=== PATIENT | male | born 1955 | race Caucasian/White ===

== ENCOUNTER 2017-10-12 08:20 | Day surgery (SDC) | payer OTHER ==
[~2017-10-12 08:20] MED LIST: ALPRAZolam 0.25 MG TAB PO PRN; ALPRAZolam 0.5 MG TAB PO PRN; ASPIRIN 325 MG TAB PO STA; ATORVASTATIN 80 MG TAB PO STA; NITROGLYCERIN SL TABS 0.4 MG TAB SUBLINGUAL PRN; SODIUM CHLORIDE 0.9% 1,000 ML IV ONE; SODIUM CHLORIDE 0.9% 1,000 ML in EMPTY BAG 1 BAG IV ONE
[2017-10-12 08:47] VITALS: TEMP 98.1
[2017-10-12 09:07] LABS: Anion Gap 10 mmol/L; Blood Urea Nitrogen 21 mg/dL (9-20); Calcium 9.6 mg/dL (8.4-10.2); Carbon Dioxide 23 mmol/L (22-30); Chloride 108 mmol/L (98-107); Glucose 112 mg/dL (74-99); Potassium 4.6 mmol/L (3.5-5.1); Sodium 141 mmol/L (137-145)
[2017-10-12] MEDS ORDERED: MIDAZOLAM 2 MG/2 ML VIAL ONE (10:53)
[2017-10-12] MEDS ORDERED: HEPARIN SODIUM 1,000 UN/ML (10ML VL) ONE (10:54)
[2017-10-12] MEDS ORDERED: VERAPAMIL 2.5 MG/ML 2 ML AMP ONE (10:54)
[2017-10-12] MEDS ORDERED: LIDOCAINE 2% INJ 20 MG/ML (20 ML MDV) ONE (10:54)
[2017-10-12] MEDS: MIDAZOLAM 2 MG/2 ML VIAL IV ONE ×2 (11:08→11:11)
[2017-10-12] MEDS ORDERED: LIDOCAINE 2% INJ 20 MG/ML SQ ONE (11:11)
[2017-10-12] MEDS: VERAPAMIL SYRINGE (5 MG/10 ML) INTRAARTER ONE ×2 (11:12→11:23)
[2017-10-12] MEDS ORDERED: HEPARIN SODIUM 1,000 UN/ML (10ML VL) IV ONE (11:14)
[2017-10-12] MEDS ORDERED: IOHEXOL 350 MG/ML 125ML BOTTLE INJ ONE (11:23)
[2017-10-12] MEDS ORDERED: RX INFO: IV CONTRAST WAS GIVEN 1 EACH MISC MISCELLANE PRN (11:27)
[2017-10-12] MEDS ORDERED: SODIUM CHLORIDE 0.9% 1,000 ML IV SCH (11:30)
[2017-10-12 11:49] VITALS: RESP 16
--- NOTE | 2017-10-12 12:02 | CC ---
CARDIAC CATHETERIZATION REPORT DATE OF SERVICE: 10/12/2017. PERFORMING PHYSICIAN: Haider Yanez MD, Shelter Director. PROCEDURE PERFORMED: 1. Selective right and left coronary angiogram. 2. Left heart catheterization. INDICATION: This is a pleasant 61-year-old gentleman who is known to have multiple risk factors for coronary artery disease and underwent myocardial perfusion imaging stress test at [facility] and that revealed inferior ischemia. In view of that, a heart catheterization was recommended. APPROACH: Right radial artery. COMPLICATION: None. LEVEL OF SEDATION: Moderate with a sedation length of 14 minutes. PROCEDURE DESCRIPTION: After obtaining an informed consent, the patient was brought to the [facility]. The right radial artery was cannulated using micropuncture technique and a micropuncture wire passed easily, then I placed a 6-Divehi sheath in the right radial artery. After that, I gave the patient 2 mg of verapamil IA and 10,000 units of heparin IV. Then I did selective right and left coronary angiogram using JR4 and JL3.5 catheters. Left heart catheterization was performed using 6-Divehi pigtail catheter. The procedure was completed without any complication. SELECTIVE CORONARY ANGIOGRAM: 1. The right coronary artery is a large caliber vessel and it is a dominant vessel. The proximal RCA is angiographically normal. The mid RCA has mild disease only. The RCA distally is angiographically normal and bifurcates into PDA and PLV branches. Both are angiographically normal. 2. The left main is angiographically normal. It bifurcates into the left circumflex and left anterior descending artery. 3. The left circumflex is a large caliber vessel and it is a nondominant vessel. The proximal circ is angiographically normal and gives rise into the first and second obtuse marginal branches, both are angiographically normal. The mid left circumflex is normal as well and the left circumflex distally is normal. 4. The LAD: The proximal LAD is angiographically normal. It gives rise into multiple septal equipment detailer branches. The mid LAD is normal and gives rise into a large diagonal branch and the LAD distally is angiographically normal. HEMODYNAMICS: The left ventricular end-diastolic pressure was 18 mmHg and no gradient was identified across the aortic valve. CONCLUSION: Mild nonobstructive coronary artery disease. POSTPROCEDURE MANAGEMENT: Maximize medical treatment and follow up with the patient. MMODL / IJN: [id number] /
--- NOTE | 2017-10-12 12:08 | LTR ---
October 12, 2017 Dr. Natalia Chavez at [place]. Re: Irvin Duffy patient. Dear Natalia: Mr. Irvin Duffy underwent a heart catheterization today and that revealed mild nonobstructive coronary artery disease. Maximized medical treatment is recommended. I want to thank you for allowing me to participate in his care and please do not hesitate to call for any question or concern. Sincerely, Haider Yanez MD MMCHANO / JOSÉ MIGUELN: [id number] /
[2017-10-12] MEDS ORDERED: ACETAMINOPHEN TAB 325 MG TAB PO STA (12:36)
[2017-10-12 16:56] VITALS: BP 128/67; PULSE 64
== END 2017-10-12 16:30 | disposition home or self-care (01) ==
LOC: CATHCVL 08:20
PROVIDERS: ATTEND Internal Medicine Interventional Cardiology
DX: I25.110 Atherosclerotic heart disease of native coronary artery with unstable angina pectoris (principal); R94.39 Abnormal result of other cardiovascular function study; E78.5 Hyperlipidemia, unspecified; Z82.49 Family history of ischemic heart disease and other diseases of the circulatory system; Z79.82 Long term (current) use of aspirin; Z79.899 Other long term (current) drug therapy
CPT/HCPCS: 93458; 80048; C1894; C1769; J2001; J2250; J1644; Q9967

== ENCOUNTER → 2019-11-20 | Outpatient (CLI) | payer OTHER ==
[2019-11-20 12:08] LABS: Basophils % (A) 0 %; Eosinophils # (A) 0.1 k/uL (0-0.7); Eosinophils % (A) 2 %; HCT 46.4 % (39.0-53.0); Lymphocytes # (A) 1.7 k/uL (1.0-4.8); Lymphocytes % (A) 23 %; MCH 30.4 pg (25.0-35.0); MCHC 32.4 g/dL (31.0-37.0); MCV 93.8 fL (80.0-100.0); Mean Platelet Volume 7.1; Monocytes # (A) 0.4 k/uL (0-1.0); Monocytes % (A) 6 %; Neutrophils % (A) 67 %; Platelet Count 271 k/uL (150-450); RBC 4.95 m/uL (4.30-5.90); RDW 12.2 % (11.5-15.5); WBC 7.4 k/uL (3.8-10.6)
[2019-11-20 12:11] LABS: Calcium 9.6 mg/dL (8.4-10.2); Potassium 5.1 mmol/L (3.5-5.1)
== END ==
LOC: LABPAT 10:50
PROVIDERS: ATTEND Urology
DX: Z01.818 Encounter for other preprocedural examination (principal); Z01.812 Encounter for preprocedural laboratory examination; N40.1 Benign prostatic hyperplasia with lower urinary tract symptoms
CPT/HCPCS: 36415; 80048; 85025; 93005

== ENCOUNTER 2019-11-27 06:25 | Day surgery (SDC) | payer OTHER ==
[2019-11-19 13:40] VITALS: BMI 35.1
--- NOTE | 2019-11-23 09:34 | P.GSHP ---
History of Present Illness H&P Date: 11/23/19 Chief Complaint: Weak urinary stream The patient is a 64-year-old white male with obstructive voiding symptoms. He developed urinary retention in May 2017, with 1 L drained from his bladder at that time. He was placed on alfuzosin. Cystoscopy showed obstructing BPH. He continues to report a weak stream, intermittency, and a feeling of incomplete bladder emptying. He developed recurrent urinary retention last month, with 650 mL drained from his bladder upon Koch catheter placement. He has a family history of prostate cancer. He underwent a prostate ultrasound with biopsies in 2017, revealing a prostate volume of 62 mL. Biopsies were negative. His most recent PSA level was 3.2 in August 2019. Alternative BPH treatment options were reviewed with he and his following his most recent episode of urinary retention, and he has elected to undergo a transurethral resection of prostate (TURP). He comes for this reason. - Constitutional Constitutional: Denies chills, Denies fever - Genitourinary (Male) Genitourinary: Reports as per HPI Past Medical History Past Medical History: Prostate Disorder Additional Past Medical History / Comment(s): occ PVC/irregular heart beat, currently self catheterization, herniated disk History of Any Multi-Drug Resistant Organisms: None Reported Past Surgical History: Heart Catheterization, Hernia Repair Additional Past Surgical History / Comment(s): rt shoulder arthroscopy,. RIGHT ING & UMBLICIAL hernia. VASECTOMY, oral surgery, Past Anesthesia/Blood Transfusion Reactions: No Reported Reaction Smoking Status: Never smoker - Past Family History Father Family Medical History: Cancer Additional Family Medical History / Comment(s): skin Brother(s) Family Medical History: Cancer Additional Family Medical History / Comment(s): prostate Medications and Allergies Home Medications Medication Instructions Recorded Confirmed Type Alfuzosin HCl [Alfuzosin HCl ER] 10 mg PO 1200,2330 10/05/17 11/19/19 History Aspirin [Adult Low Dose Aspirin EC] 81 mg PO DAILY 10/05/17 11/19/19 History Atorvastatin [Lipitor] 20 mg PO HS 10/05/17 11/19/19 History Cholecalciferol (Vitamin D3) 2,000 unit PO DAILY 10/05/17 11/19/19 History [Vitamin D3] Multivitamins, Thera [Multivitamin 1 tab PO DAILY 10/05/17 11/19/19 History (formulary)] Ibuprofen [Motrin] 400 mg PO Q6HR PRN 11/19/19 11/19/19 History Vitamin K 2 100 mcg PO DAILY 11/19/19 11/19/19 History Allergies Allergy/AdvReac Type Severity Reaction Status Date / Time No Known Allergies Allergy Verified 11/19/19 13:25 Surgical - Exam - General well developed, well nourished, no distress - Respiratory normal respiratory effort, clear to auscultation - Cardiovascular Rhythm: regular Abnormal Heart Sounds: no systolic murmur, no diastolic murmur - Abdomen Abdomen: soft, non tender, no guarding, no rigid, no rebound - Genitourinary normal penis with no external lesions, testicles non-tender - Rectum Rectum: normal sphincter tone, no masses, other (Prostate moderately enlarged but smooth) - Psychiatric oriented to time, oriented to person, oriented to place, speech is normal, memory intact Assessment and Plan (1) Benign prostatic hyperplasia with lower urinary tract symptoms Status: Acute Code(s): N40.1 - BENIGN PROSTATIC HYPERPLASIA WITH LOWER URINARY TRACT SYMP SNOMED Code(s): 474701891 Plan: I discussed the options concerning surgery versus medication. I advised him with regard to TURP as opposed to minimally invasive procedures such as Urolift and TUMT. Potential risks were discussed, including anesthesia, bleeding, inf ection, retrograde ejaculation, incontinence, erectile dysfunction, and vesical neck contracture. He may require admission post-operatively. The patient expressed an understanding with regard to possible complications and outcome. Following a lengthy discussion, as a result of shared decision making, the patient has elected to proceed with a TURP.
[~2019-11-27 06:25] MED LIST changes: -ALPRAZolam 0.25 MG TAB PO PRN; -ALPRAZolam 0.5 MG TAB PO PRN; -ASPIRIN 325 MG TAB PO STA; -ATORVASTATIN 80 MG TAB PO STA; +DEXAMETHASONE SOD PHOSPHATE 10 MG/ML 1 ML VIAL IV ONE; +HYDROmorphone 0.5 MG/0.5 ML SYRINGE IVP PRN; +LIDOCAINE 1% (10MG/ML) FOR IV START INTRADERMA PRN; -NITROGLYCERIN SL TABS 0.4 MG TAB SUBLINGUAL PRN; +ONDANSETRON 4 MG/2 ML VIAL IVP ONE; -SODIUM CHLORIDE 0.9% 1,000 ML IV ONE; -SODIUM CHLORIDE 0.9% 1,000 ML in EMPTY BAG 1 BAG IV ONE
[2019-11-27] MEDS: LACTATED RINGERS 1,000 ML IV SCH ×2 (06:54→12:20)
[2019-11-27] MEDS ORDERED: LIDOCAINE 1% INJ 10MG/ML (20 ML MDV) ONE (07:30)
[2019-11-27] MEDS ORDERED: GLYCOPYRROLATE 0.2 MG/ML 2 ML VIAL ONE (07:30)
[2019-11-27] MEDS ORDERED: fentaNYL (PF) 50 MCG/ML 2 ML AMP ONE (07:30)
[2019-11-27] MEDS ORDERED: ROCURONIUM BROMIDE 10 MG/ML 5 ML VIAL IV ONE (07:30)
[2019-11-27] MEDS ORDERED: NEOSTIGMINE 1 MG/ML 10 ML VIAL ONE (07:30)
[2019-11-27] MEDS ORDERED: PROPOFOL 10 MG/ML 20 ML VIAL IV ONE (07:30)
[2019-11-27] MEDS ORDERED: MIDAZOLAM 2 MG/2 ML VIAL ONE (07:30)
[2019-11-27] MEDS ORDERED: LACTATED RINGERS 1,000 ML IV ONE (09:06)
[2019-11-27] MEDS ORDERED: MAG HYDROX/AL HYDROX/SIMETH 30 ML CUP PO PRN (11:26)
[2019-11-27] MEDS ORDERED: ACETAMINOPHEN TAB 325 MG TAB PO PRN (11:26)
[2019-11-27] MEDS ORDERED: BELLADONNA-OPIUM 16.2-60 MG 1 EACH SUPP RECTAL PRN (11:26)
--- NOTE | 2019-11-27 11:32 | P.OP ---
Date of Procedure: 11/27/19 Preoperative Diagnosis: BPH with obstruction Postoperative Diagnosis: Same Procedure(s) Performed: Cystoscopy, bipolar transurethral resection of prostate (TURP) Anesthesia: JOSE MARTIN Surgeon: Steve Hewitt Estimated Blood Loss (ml): 100 IV fluids (ml): 1,400 Pathology: other (Prostate chips) Condition: stable Disposition: PACU Indications for Procedure: The patient is a 64-year-old white male with obstructive voiding symptoms. He developed urinary retention in May 2017, with 1 L drained from his bladder at that time. He was placed on alfuzosin. Cystoscopy showed obstructing BPH. He continues to report a weak stream, intermittency, and a feeling of incomplete bladder emptying. He developed recurrent urinary retention last month, with 650 mL drained from his bladder upon Koch catheter placement. He has a family history of prostate cancer. He underwent a prostate ultrasound with biopsies in 2017, revealing a prostate volume of 62 mL. Biopsies were negative. His most recent PSA level was 3.2 in August 2019. Alternative BPH treatment options were reviewed with he and his following his most recent episode of urinary retention, and he has elected to undergo a transurethral resection of prostate (TURP). Operative Findings: Bilobar BPH with high median bar, visually occluded. Description of Procedure: The patient was taken in the operating room and placed in the dorsolithotomy position. The external genitalia was prepped and draped sterilely. The 25- Irish ACMI resectoscope sheath was introduced into the bladder. The bladder was inspected. Both ureteral orifices were of normal anatomic location and configuration, and clear urine effluxed from both. No tumors or foreign bodies were seen. Examination of the prostate revealed complete obstruction with a ellen obar configuration with a high median bar. Using the bipolar cutting loop, the median lobe was resected up to the verumontanum. This opened the prostatic fossa, and the lateral lobes were resected down to the surgical capsule. The resection of the floor of the prostate was then completed, proximal to the verumontanum. Lastly, any remaining anterior tissue was resected. The remaining apical tissue was then carefully resected. The resection was carried down to the surgical capsule in all 4 quadrants. The prostatic fossa was then carefully examined, and any areas of bleeding were controlled with electrocautery. Excellent hemostasis was attained. The resectoscope was withdrawn into the bulbous urethra. The external urinary sphincter remained intact. The prostatic fossa was open. The Conductor evacuator was used to remove all prostate chips from the bladder. These were saved and sent for pathologic examination. The resectoscope was removed, and a 22 Irish, 3-Way Koch catheter was placed. The return was essentially clear. Continuous bladder irrigation was started using 0.9 normal saline. The patient tolerated the procedure well was taken to the recovery room in stable condition.
[2019-11-27] MEDS: DEXTROSE 5%-0.45% NACL 1,000 ML IV SCH (13:14)
[2019-11-27] MEDS: SODIUM CHLORIDE 0.9% IRRIG 3,000 ML BAG IRRIGATION SCH ×2 (13:15→18:03)
[2019-11-27] MEDS: DOCUSATE 100 MG CAP PO SCH ×2 (13:18→20:08)
[2019-11-27] MEDS ORDERED: ATORVASTATIN 20 MG TAB PO SCH (21:00)
[2019-11-28] MEDS: DEXTROSE 5%-0.45% NACL 1,000 ML IV SCH (00:47)
[2019-11-28 02:11] VITALS: RESP 16
[2019-11-28 07:27] VITALS: BP 100/48; PULSE 60; TEMP 97.9
--- NOTE | 2019-11-28 07:59 | P.DS ---
Providers Expected date of discharge: 11/28/19 Attending physician: Steve Hewitt Primary care physician: Natalia Chavez, [facility] - Discharge Diagnosis(es) (1) Benign prostatic hyperplasia with lower urinary tract symptoms Current Visit: No Status: Acute Hospital Course: Review of admission, the patient underwent an uncomplicated bipolar TURP. The perioperative course was unremarkable. He remained afebrile with stable vital signs. On the first morning following surgery, he was comfortable and eating breakfast. His urine was essentially clear with continuous bladder irrigation r unning very slowly. Procedures: Cystoscopy, TURP on 11/27/19. Patient Condition at Discharge: Good Plan - Discharge Summary Discharge Rx Participant: Yes New Discharge Prescriptions: New Sulfamethox-Tmp 800-160Mg [Bactrim DS 800-160 mg] 1 tab PO Q12HR #6 tab No Action Alfuzosin HCl [Alfuzosin HCl ER] 10 mg PO 1200,2330 Aspirin [Adult Low Dose Aspirin EC] 81 mg PO DAILY Atorvastatin [Lipitor] 20 mg PO HS Cholecalciferol (Vitamin D3) [Vitamin D3] 2,000 unit PO DAILY Multivitamins, Thera [Multivitamin (formulary)] 1 tab PO DAILY Vitamin K 2 100 mcg PO DAILY Ibuprofen [Motrin] 400 mg PO Q6HR PRN PRN Reason: Pain Discharge Medication List Alfuzosin HCl [Alfuzosin HCl ER] 10 mg PO 1200,2330 10/05/17 [History] Aspirin [Adult Low Dose Aspirin EC] 81 mg PO DAILY 10/05/17 [History] Atorvastatin [Lipitor] 20 mg PO HS 10/05/17 [History] Cholecalciferol (Vitamin D3) [Vitamin D3] 2,000 unit PO DAILY 10/05/17 [History] Multivitamins, Thera [Multivitamin (formulary)] 1 tab PO DAILY 10/05/17 [History] Ibuprofen [Motrin] 400 mg PO Q6HR PRN 11/19/19 [History] Vitamin K 2 100 mcg PO DAILY 11/19/19 [History] Sulfamethox-Tmp 800-160Mg [Bactrim DS 800-160 mg] 1 tab PO Q12HR #6 tab 11/28/19 [Rx] Follow up Appointment(s)/Referral(s): Steve Hewitt MD [STAFF PHYSICIAN] - 12/02/19 Activity/Diet/Wound Care/Special Instructions: Discharge home with Koch catheter. Plug irrigant port. Avoid straining or strenuous activity. Drink plenty of fluids. Diet as tolerated. Hold aspirin and ibuprofen. Begin taking Bactrim on 12/01/2019. Discharge Disposition: HOME SELF-CARE
[2019-11-28] MEDS: LACTATED RINGERS 1,000 ML IV SCH (09:36)
[2019-11-28] MEDS: DOCUSATE 100 MG CAP PO SCH (09:36)
== END 2019-11-28 11:33 | disposition home or self-care (01) ==
LOC: OR 06:25 → 4SSUR 10:55 → OR 11-28 11:33
PROVIDERS: ATTEND Urology
DX: N40.1 Benign prostatic hyperplasia with lower urinary tract symptoms (principal); N13.8 Other obstructive and reflux uropathy; C61 Malignant neoplasm of prostate; N41.9 Inflammatory disease of prostate, unspecified; E78.5 Hyperlipidemia, unspecified; I49.3 Ventricular premature depolarization; Z98.52 Vasectomy status; Z98.890 Other specified postprocedural states; Z80.42 Family history of malignant neoplasm of prostate; Z80.8 Family history of malignant neoplasm of other organs or systems; Z79.82 Long term (current) use of aspirin; Z79.899 Other long term (current) drug therapy
CPT/HCPCS: 52601; 88305; 84132; J2250; J1100; J2710; J0690; J2405; J2001; J3010; J2704

== ENCOUNTER → 2020-03-08 | Outpatient (CLI) | payer OTHER ==
--- NOTE | 2020-03-09 07:56 | CT ---
EXAMINATION TYPE: CT pelvis w con DATE OF EXAM: 03/08/2020 COMPARISON: 06/25/2015 HISTORY: Follow up prostate cancer. CT DLP: 999.1 mGycm Automated exposure control for dose reduction was used. CONTRAST: CT scan of the pelvis is performed with IV Contrast, patient injected with 100 mL of Isovue 300. FINDINGS- Small fat-containing inguinal hernias bilaterally. The bladder is decompressed limiting. Hypertrophic and degenerative change of the spine is seen and there is hypertrophic changes involving the SI join ts. This is similar to the prior exam. Sclerotic density involving the right pubic ramus is stable an d therefore likely related to bone island unchanged from 2015. There remains soft tissue fullness in the left pelvis measuring 5 x 2.5 cm on the left and 1.3 x 2.2 cm on the right unchanged from the prior exam. Prostate gland appears prominent. Visualized bowel dem onstrate no definite abnormality aorta of normal caliber. IMPRESSION- 1. Stable CT of the pelvis demonstrating the previously described soft tissue densities in the lower pelvis greater on the left which could represent lymph nodes unchanged from prior exam of 2014. 2. Prostate again appears somewhat enlarged. 3. Stable sclerotic lesion involving the pubic ramus on the right unchanged from 2015 and therefore l ikely benign and related to bone island.
== END | disposition home or self-care (01) ==
LOC: RADCTMAIN 14:36
PROVIDERS: ATTEND Urology
DX: C61 Malignant neoplasm of prostate (principal)
CPT/HCPCS: 82565; 84520; 72193; 36415; Q9967

== ENCOUNTER → 2020-04-28 | Outpatient (CLI) | payer OTHER ==
[2020-04-28 08:01] LABS: Basophils % (A) 1 %; Eosinophils # (A) 0.1 k/uL (0-0.7); Eosinophils % (A) 2 %; HGB 15.3 gm/dL (13.0-17.5); Lymphocytes # (A) 1.7 k/uL (1.0-4.8); Lymphocytes % (A) 26 %; MCH 31.6 pg (25.0-35.0); MCHC 33.9 g/dL (31.0-37.0); Mean Platelet Volume 7.4; Monocytes # (A) 0.5 k/uL (0-1.0); Monocytes % (A) 7 %; Neutrophils # (A) 3.9 k/uL (1.3-7.7); Neutrophils % (A) 62 %; Platelet Count 205 k/uL (150-450); RBC 4.84 m/uL (4.30-5.90); RDW 12.9 % (11.5-15.5); WBC 6.2 k/uL (3.8-10.6)
[2020-04-28 08:06] LABS: Calcium 9.4 mg/dL (8.4-10.2); Potassium 4.9 mmol/L (3.5-5.1)
== END | disposition home or self-care (01) ==
LOC: LABPAT 07:11
PROVIDERS: ATTEND Urology
DX: Z01.818 Encounter for other preprocedural examination (principal); C61 Malignant neoplasm of prostate
CPT/HCPCS: 36415; 80048; 85025

== ENCOUNTER 2020-05-05 07:09 | Day surgery (SDC) | payer MEDICARE, OTHER ==
[2020-04-28 11:57] VITALS: BMI 34.0
[~2020-05-05 07:09] MED LIST changes: +HEPARIN SODIUM,PORCINE 5,000 UNIT/ML 1 ML VIAL SQ ONE; -HYDROmorphone 0.5 MG/0.5 ML SYRINGE IVP PRN; -LIDOCAINE 1% (10MG/ML) FOR IV START INTRADERMA PRN
[2020-05-05] MEDS ORDERED: ONDANSETRON 4 MG/2 ML VIAL ONE (07:51)
[2020-05-05] MEDS ORDERED: HEPARIN SODIUM,PORCINE 5,000 UNIT/ML 1 ML VIAL ONE (07:51)
--- NOTE | 2020-05-05 07:55 | P.GSHP ---
History of Present Illness H&P Date: 05/05/20 Chief Complaint: Prostate cancer The patient is a 64-year-old white male with obstructive voiding symptoms. He developed urinary retention in May 2017, with 1 L drained from his bladder at that time. He was placed on alfuzosin. Cystoscopy showed obstructing BPH. He continues to report a weak stream, intermittency, and a feeling of incomplete bladder emptying. He developed recurrent urinary retention last month, with 650 mL drained from his bladder upon Koch catheter placement. He has a family history of prostate cancer. He underwent a prostate ultrasound with biopsies in 2017, revealing a prostate volume of 62 mL. Biopsies were negative. His most recent PSA level was 3.2 in August 2019. Alternative BPH treatment options were reviewed with he and his following his most recent episode of urinary retention, and he elected to undergo a transurethral resection of prostate (TURP). This was performed on 11/27/2019. 5% of the resected tissue showed [place] 6 adenocarcinoma. He underwent a prostate ultrasound with biopsies on 01/16/2020. The prostate volume was 29 mL, and one of 12 biopsies showed [place] 7 (3+4) adenocarcinoma. He was offered the options of active surveillance, radiation therapy, and robotic-assisted laparoscopic prostate ctomy. He has elected to undergo the latter. - Constitutional Constitutional: Denies chills, Denies fever - Cardiovascular Cardiovascular: Denies chest pain - Respiratory Respiratory: Denies dyspnea Past Medical History Past Medical History: Prostate Disorder Additional Past Medical History / Comment(s): occ PVC/irregular heart beat, herniated disk L4-L5 History of Any Multi-Drug Resistant Organisms: None Reported Past Surgical History: Heart Catheterization, Hernia Repair Additional Past Surgical History / Comment(s): rt shoulder arthroscopy,. RIGHT ING & UMBLICIAL hernia. VASECTOMY, oral surgery,TURP Past Anesthesia/Blood Transfusion Reactions: No Reported Reaction Additional Past Anesthesia/Blood Transfusion Reaction / Comment(s): no hx blood transfusion Smoking Status: Never smoker - Past Family History Father Family Medical History: Cancer Additional Family Medical History / Comment(s): skin & prostate CA Brother(s) Family Medical History: Cancer Additional Family Medical History / Comment(s): prostate Medications and Allergies Home Medications Medication Instructions Recorded Confirmed Type Aspirin [Adult Low Dose Aspirin EC] 81 mg PO DAILY 10/05/17 04/28/20 History Atorvastatin [Lipitor] 20 mg PO HS 10/05/17 04/28/20 History Cholecalciferol (Vitamin D3) 2,000 unit PO BID 10/05/17 04/28/20 History [Vitamin D3] Multivitamins, Thera [Multivitamin 1 tab PO DAILY 10/05/17 04/28/20 History (formulary)] Allergies Allergy/AdvReac Type Severity Reaction Status Date / Time No Known Allergies Allergy Verified 05/05/20 07:42 Surgical - Exam - General well developed, well nourished, no distress - Respiratory normal respiratory effort, clear to auscultation - Cardiovascular Rhythm: regular Abnormal Heart Sounds: no systolic murmur, no diastolic murmur, no rub, no S3 Gallop, no S4 Gallop, no click, no other - Abdomen Abdomen: soft, non tender, no guarding, no rigid, no rebound Hernia: no none, no inguinal, no epigastric, no incisional, no reducible, no femoral, no umbilical, no scrotal, no incarcerated - Genitourinary normal penis with no external lesions, testicles non-tender - Psychiatric oriented to time, oriented to person, oriented to place, speech is normal, memory intact Assessment and Plan (1) Malignant neoplasm of prostate Status: Acute Code(s): C61 - MALIGNANT NEOPLASM OF PROSTATE SNOMED Code(s): 063552302 Plan: Robotic-assisted laparoscopic prostatectomy (RALP). The procedure has been reviewed in detail with the patient. The anticipated perioperative course was discussed, as were potential risks. These include anesthesia, bleeding, infection, vascular injury, bowel injury, urinary leak, vesical neck contracture, and urethral stricture. He is voiding well following his TURP, but he was made aware of the fact that he will likely experience urinary incontinence following the RALP which may fail to resolve. He is not sexually active, but denies erectile dysfunction and an attempt will be made to preserve the neurovascular bundles.
[2020-05-05] MEDS: LACTATED RINGERS 1,000 ML IV SCH (07:56)
[2020-05-05] MEDS ORDERED: fentaNYL (PF) 50 MCG/ML 2 ML AMP ONE (08:26)
[2020-05-05] MEDS ORDERED: ALBUMIN HUMAN 5% (25gm) 500 ML VIAL IVPB ONE (08:26)
[2020-05-05] MEDS ORDERED: HYDROmorphone (PF) 1 MG/ML ONE (08:26)
[2020-05-05] MEDS ORDERED: GLYCOPYRROLATE 0.2 MG/ML 2 ML VIAL ONE (08:26)
[2020-05-05] MEDS ORDERED: ROCURONIUM BROMIDE 10 MG/ML 5 ML VIAL IV ONE (08:26)
[2020-05-05] MEDS ORDERED: LIDOCAINE 1% INJ 10MG/ML (20 ML MDV) ONE (08:26)
[2020-05-05] MEDS ORDERED: PROPOFOL 10 MG/ML 20 ML VIAL IV ONE (08:26)
[2020-05-05] MEDS ORDERED: MIDAZOLAM 2 MG/2 ML VIAL ONE (08:26)
[2020-05-05] MEDS ORDERED: SUCCINYLCHOLINE CHLORIDE 100 MG/5 ML SYR IV ONE (08:26)
[2020-05-05] MEDS ORDERED: NEOSTIGMINE 1 MG/ML 10 ML VIAL ONE (08:26)
[2020-05-05] MEDS ORDERED: BUPIVACAINE (PF) 0.25% 30 ML VIAL SQ ONE ×2 (10:28)
[2020-05-05] MEDS ORDERED: HYDROmorphone 1 MG/ML 1 ML SYRINGE IVP PRN (12:57)
[2020-05-05] MEDS ORDERED: ONDANSETRON 4 MG/2 ML VIAL IVP PRN (12:57)
[2020-05-05] MEDS ORDERED: ACETAMINOPHEN TAB 325 MG TAB PO PRN (12:57)
--- NOTE | 2020-05-05 12:57 | P.OP ---
Date of Procedure: 05/05/20 Preoperative Diagnosis: Adenocarcinoma of the prostate, clinical stage [id number] Postoperative Diagnosis: Same Procedure(s) Performed: Robotic-assisted laparoscopic prostatectomy (RALP) Anesthesia: JOSE MARTIN Surgeon: Steve Hewitt Community Worker #1: Floyd Pagan Estimated Blood Loss (ml): 250 IV fluids (ml): 700 Pathology: other (Prostate and seminal vesicles) Condition: stable Disposition: PACU Indications for Procedure: The patient is a 64-year-old white male with obstructive voiding symptoms. He developed urinary retention in May 2017, with 1 L drained from his bladder at that time. He was placed on alfuzosin. Cystoscopy showed obstructing BPH. He continues to report a weak stream, intermittency, and a feeling of incomplete bladder emptying. He developed recurrent urinary retention last month, with 650 mL drained from his bladder upon Koch catheter placement. He has a family history of prostate cancer. He underwent a prostate ultrasound with biopsies in 2017, revealing a prostate volume of 62 mL. Biopsies were negative. His most recent PSA level was 3.2 in August 2019. Alternative BPH treatment options were reviewed with he and his following his most recent episode of urinary retention, and he elected to undergo a transurethral resection of prostate (TURP). This was performed on 11/27/2019. 5% of the resected tissue showed Pattison 6 adenocarcinoma. He underwent a prostate ultrasound with biopsies on 01/16/2020. The prostate volume was 29 mL, and one of 12 biopsies showed Pattison 7 (3+4) adenocarcinoma. He was offered the options of active surveillance, radiation therapy, and robotic-assisted laparoscopic prostatectomy. He has elected to undergo the latter. Operative Findings: Significant periprostatic reaction. Description of Procedure: The patient was taken in the operating room and placed in the dorsal lithotomy position, with his legs supported in Roldan stirrups. He was carefully positioned on a beanbag for stability. The abdomen and external genitalia were prepped and draped sterilely. A Koch catheter was inserted. The Veress needle was passed through the anterior abdominal wall immediately cephalad to the umbilicus, and insufflation was performed to a pressure of 20 mm Hg. Once insufflation was performed, the Veress needle was removed and a supraumbilical incision was made, through which a 12 mm camera port was placed. Under camera guidance, 3 8 mm robotic ports were placed, 2 on the left and one on the right. An additional 12 mm port was placed on the right lateral side for use as an recycling assistant port. A 5 mm port was placed to the right of the camera port for suction. The patient was placed in Trendelenburg position, and docking was then performed to the da Decision Curve system utilizing a 4-arm approach. The abdomen was examined. The sigmoid colon was mobilized out of the pelvis. The peritoneum was incised lateral to the medial umbilical ligaments bilaterally, exposing the pubis. The peritoneum was then incised across the midline, allowing the bladder flap to be taken down. The endopelvic fascia was opened bilaterally, and muscular attachments from the urogenital diaphragm were swept away from the prostate. The vesical neck was incised transversely, down to the lumen. The Koch catheter was brought out through the anterior vesical neck incision and was used for traction. It was determined that despite the prior TURP, the vesical neck incision was in an appropriate area and it was also noted that the vesical neck was intact. The posterior aspect of the vesical neck was incised, such that the full-thickness of the vesical neck was divided. Significant reaction was noted, particularly in the fatty connective tissue laterally. The anterior layer of the Denonvilliers fascia was incised, exposing the vas deferens. Each were isolated and divided. Next, each of the seminal vesicles were dissected away from adjacent tissues, and vascular attachments were cauterized and divided. The posterior leaf of Denonvilliers fascia was incised transversely, allowing entry into the plane between the prostate and rectum. With lateral spreading, this plane was developed down to the apex. This exposed the lateral vascular pedicles bilaterally. These were clipped and divided in an antegrade fashion, down to the apex. The use of electrocautery was avoided to prevent thermal damage to the nerves. The remaining apical attachments were swept away from the prostate. The dorsal venous complex was incised, as well as periurethral tissue. At this point, only the urethra remained intact. This was transected immediately distal to the prostatic apex using cold scissors. The specimen was placed within a specimen bag. The dorsal venous complex was sutured using a V-Loc suture in a running fashion. A second V-Loc suture was then used to place the Twan stitch, incorporating the rhabdosphincter and the edge of Denonvilliers fascia. This allowed the bladder to be taken down to the urethra, leaving the vesical neck immediately adjacent to the urethra. The vesicourethral anastomosis was then performed using a V-Loc suture in a running fashion. After completing the anastomosis, an 18-Somali Koch catheter was placed and approximately 150 mL of 0.9 normal saline were instilled into the bladder. No extravasation of irrigant from the vesicourethral anastomosis was noted. Hemostasis was noted at this time to be excellent, and it was thus felt that a drain was unnecessary. A small amount of oozing was noted from the vascular pedicles, so Surgicel was placed bilaterally. The patient was returned to the supine position. Undocking was performed, and the specimen bag sutures were passed through the camera port. After removing all the ports and allowing all of the CO2 to be released from the peritoneal cavity, the camera port incision was enlarged to allow removal of the surgical specimen. The fascia of this incision was then closed using 0 Vicryl suture in a running fashion. Each of the skin incisions were then closed using 4-0 Monocryl suture in a subcuticular fashion. Marcaine was injected at each of the incision sites. Dermabond was applied to each incision. The Koch catheter was connected to gravity drainage. All sponge and needle counts were correct. The patient tolerated the procedure well was taken to the recovery room in stable condition.
[2020-05-05] MEDS: HYDROmorphone 0.5 MG/0.5 ML SYRINGE IVP PRN ×2 (13:46→14:15)
[2020-05-05] MEDS: DEXTROSE 5%-0.45% NACL 1,000 ML IV SCH ×2 (15:27→21:21)
[2020-05-05] MEDS: KETOROLAC 30 MG/ML 1 ML VIAL IVP PRN ×2 (18:07→23:45)
[2020-05-05] MEDS ORDERED: ATORVASTATIN 20 MG TAB PO SCH (21:00)
[2020-05-05] MEDS: HEPARIN SODIUM,PORCINE 5,000 UNIT/ML 1 ML VIAL SQ SCH (21:21)
[2020-05-06 03:49] VITALS: RESP 18
[2020-05-06 07:50] VITALS: BP 101/55; PULSE 61; TEMP 98.7
[2020-05-06] MEDS: HEPARIN SODIUM,PORCINE 5,000 UNIT/ML 1 ML VIAL SQ SCH (08:49)
--- NOTE | 2020-05-06 10:04 | P.DS ---
Providers Expected date of discharge: 05/06/20 Attending physician: Steve Hewitt Primary care physician: Jayce Bashir MD - Discharge Diagnosis(es) (1) Malignant neoplasm of prostate Current Visit: No Status: Acute Hospital Course: On the day of admission, the patient underwent an uncomplicated robotic-assisted laparoscopic prostatectomy (RALP). The perioperative course was unremarkable. Patient remained afebrile with stable vital signs postoperatively. On the first postoperative day, he had no complaints. He was ambulating without difficulty and tolerating diet. His Koch catheter was draining clear yellow urine. The abdomen was soft and non-distended. The incisions were clean, dry, and intact. Procedures: RALP on 05/05/2020. Patient Condition at Discharge: Good Plan - Discharge Summary Discharge Rx Participant: No New Discharge Prescriptions: New Ciprofloxacin HCl [Cipro] 250 mg PO Q12HR #6 tablet Ketorolac [Toradol] 10 mg PO Q6HR #12 tab No Action Aspirin [Adult Low Dose Aspirin EC] 81 mg PO DAILY Atorvastatin [Lipitor] 20 mg PO HS Cholecalciferol (Vitamin D3) [Vitamin D3] 2,000 unit PO BID Multivitamins, Thera [Multivitamin (formulary)] 1 tab PO DAILY Discharge Medication List Aspirin [Adult Low Dose Aspirin EC] 81 mg PO DAILY 10/05/17 [History] Atorvastatin [Lipitor] 20 mg PO HS 10/05/17 [History] Cholecalciferol (Vitamin D3) [Vitamin D3] 2,000 unit PO BID 10/05/17 [History] Multivitamins, Thera [Multivitamin (formulary)] 1 tab PO DAILY 10/05/17 [History] Ciprofloxacin HCl [Cipro] 250 mg PO Q12HR #6 tablet 05/06/20 [Rx] Ketorolac [Toradol] 10 mg PO Q6HR #12 tab 05/06/20 [Rx] Follow up Appointment(s)/Referral(s): Steve Hewitt MD [STAFF PHYSICIAN] - 05/17/20 Activity/Diet/Wound Care/Special Instructions: Discharge home with Koch catheter. Instruct patient to use overnight drainage bag as well as urinary leg bag. Okay to shower. Diet as tolerated. No lifting, driving, or strenuous activity. Reassure patient that abdominal wall ecchymosis and penoscrotal swelling are normal. Instruct patient to begin taking antibiotics one day prior to Koch catheter removal. Discharge Disposition: HOME SELF-CARE
== END 2020-05-06 13:41 | disposition home or self-care (01) ==
LOC: OR 07:09 → 4SSUR 13:02 → OR 05-06 13:41
PROVIDERS: ATTEND Urology
DX: C61 Malignant neoplasm of prostate (principal); I49.3 Ventricular premature depolarization; Z79.82 Long term (current) use of aspirin; Z79.899 Other long term (current) drug therapy; Z98.52 Vasectomy status; Z98.890 Other specified postprocedural states; Z80.42 Family history of malignant neoplasm of prostate; Z80.8 Family history of malignant neoplasm of other organs or systems
CPT/HCPCS: 86900; 86901; 86850; 55866; J1644 ×2; J1100; J0690 ×2; J2405; J1885; J1170; 88309

== ENCOUNTER 2024-08-22 10:45 | Day surgery (SDC) | payer MEDICARE, OTHER ==
[2024-08-22] MEDS: IV FLUID CONTINUATION 1,000 ML IV ONE (11:32)
[2024-08-22 11:38] VITALS: RESP 16; TEMP 97.6
[2024-08-22] MEDS: LACTATED RINGERS 1,000 ML IV SCH (11:50)
[2024-08-22] MEDS ORDERED: PROPOFOL 10 MG/ML 20 ML VIAL IV ONE (12:44)
[2024-08-22] MEDS ORDERED: LIDOCAINE 1% INJ 10MG/ML (20 ML MDV) ONE (12:44)
--- NOTE | 2024-08-22 13:03 | P.PCN ---
Date of Procedure: 08/22/24 Procedure(s) Performed: BRIEF HISTORY: Patient is a 68-year-old pleasant white male scheduled for an elective colonoscopy as a part of screening for colon cancer. PROCEDURE PERFORMED: Colonoscopy with snare polypectomy. PREOPERATIVE DIAGNOSIS: Screening for colon cancer. IV sedation per Anesthesia. PROCEDURE: After informed consent was obtained, the patient, was brought into the endoscopy unit. IV sedation was administered by Anesthesia under continuous monitoring. Digital rectal examination was normal. Initially the Olympus CF-160 flexible video colonoscope was then inserted in the rectum, gradually advanced into the cecum without any difficulty. Careful examination was performed as the scope was gradually being withdrawn. Ileocecal valve and the appendiceal orifice were visualized and appeared normal. Prep was excellent. Mucosa of the cecum had a 5 mm sessile polyp removed by cold snare polypectomy. In the ascending colon there was a 1 cm polyp removed by hot snare polypectomy. Rest of the, ascending colon, transverse colon, descending colon, sigmoid colon, and rectum appeared normal. Moderate sigmoid diverticulosis. Retroflexion was performed in the rectum and no lesions were seen. The patient tolerated the procedure well. IMPRESSION: 5 mm cecal polyp status post cold snare polypectomy 1 cm ascending colon polyp status post hot snare polypectomy Moderate sigmoid diverticulosis RECOMMENDATIONS: Findings of this examination were discussed with the patient as well as his family. He was advised to follow-up with the biopsy results. The biopsy was adenoma he can have repeat colonoscopy in 3 years..
[2024-08-22 13:48] VITALS: BP 131/74; PULSE 57
== END 2024-08-22 14:05 | disposition home or self-care (01) ==
LOC: ORWHC2ENDO 10:45
PROVIDERS: ATTEND Internal Medicine Gastroenterology
DX: Z12.11 Encounter for screening for malignant neoplasm of colon (principal); K57.30 Diverticulosis of large intestine without perforation or abscess without bleeding; D12.0 Benign neoplasm of cecum; I49.3 Ventricular premature depolarization; Z85.46 Personal history of malignant neoplasm of prostate; Z79.82 Long term (current) use of aspirin; Z79.899 Other long term (current) drug therapy; Z98.890 Other specified postprocedural states; Z90.89 Acquired absence of other organs
CPT/HCPCS: 88305; 45385; J2003; J2704

== ENCOUNTER → 2024-11-27 | Outpatient (CLI) | payer MEDICARE | END | disposition home or self-care (01) | LOC: LABWHC1 12:25 | PROVIDERS: ATTEND Urology | DX: C61 Malignant neoplasm of prostate (principal) | CPT/HCPCS: 84153 ==